=== PATIENT | male | born 1970 ===

== ENCOUNTER 2021-05-07 04:25 | Inpatient (IN) ==
[2021-05-07] MEDS ORDERED: Heparin DRIP 25,000 UNITS BAG 25,000 UNITS/500 ML BAG IV SCH (05:15)
[2021-05-07] MEDS ORDERED: Atropine 0.1 MG/ML 10 ml SYR (1 mg) ONE (05:59)
[2021-05-07] MEDS ORDERED: cefTRIAXone 1 gm/50 mL NS BAG 1 GM/50 ML BAG IVPB SCH (06:00)
[2021-05-07] MEDS ORDERED: Azithromycin 500 mg/250 ml NS 500 MG/250 ML BAG IVPB SCH (06:00)
[2021-05-07] MEDS ORDERED: Heparin 5000 UNITS/ML 1 mL VIAL IV SCH ×2 (06:00)
[2021-05-07] MEDS: methylPREDNISolone SOD 40 mg/ml 1 ml VIAL IV SCH ×3 (06:23→20:43)
[2021-05-07] MEDS: Levofloxacin 750 MG IVPREMIX 750 MG/150 ML BAG IVPB SCH (06:23)
[2021-05-07 06:49] LABS: Activated Partial Thrombo Time 23.1 seconds (26.0-38.0); INR 1.41 (0.86-1.15)
[2021-05-07 06:52] LABS: White Blood Count 12.7 10^3/uL (3.5-10.8)
[2021-05-07 06:53] LABS: Hematocrit 27 % (42-52); Hemoglobin 8.9 g/dL (14.0-18.0); Mean Corpuscular HGB Conc 33 g/dL (31-36); Mean Corpuscular Hemoglobin 31 pg (27-31); Mean Corpuscular Volume 94 fL (80-94); Mean Platelet Volume 7.2 fL (7.4-10.4); Platelet Count 570 10^3/uL (150-450); Red Blood Count 2.84 10^6 /uL (4.18-5.48); Red Cell Distribution Width 14 % (10-15)
[2021-05-07] MEDS ORDERED: Albuterol HFA INHALER 8 gm MDI INH SCH (07:00)
[2021-05-07] MEDS ORDERED: NS 0.9% 1000 ml BAG 1,000 ML IV ONE (07:00)
[2021-05-07] MEDS ORDERED: Mometasone/Formoter 200/5 MDI INH SCH (07:00)
[2021-05-07 07:39] LABS: Albumin 2.8 g/dL (3.2-5.2); Calcium 7.8 mg/dL (8.6-10.3); Potassium 4.1 mmol/L (3.5-5.0); Total Bilirubin 1.3 mg/dL (0.2-1.0)
[2021-05-07 07:41] LABS: Globulin 2.7 g/dL (2-4); Total Protein 5.5 g/dL (6.4-8.9); eGFR CKD-EPI 105.3 (>60)
[2021-05-07 07:42] LABS: Troponin I 0.01 ng/mL (<0.03)
[2021-05-07 08:07] LABS: ABS Basophils 0.1 10^3/ul (0-0.2); ABS Eosinophils 0.2 10^3/ul (0-0.6); ABS Lymphocytes 1.2 10^3/ul (1.0-4.8); ABS Monocytes 0.9 10^3/ul (0-0.8); ABS Neutrophils 10.3 10^3/ul (1.5-7.7); Eosinophil % 1.3 %; Lymphocyte % 9.6 %
[2021-05-07 09:40] LABS: Phosphorus 3.4 mg/dL (2.5-5.0)
[2021-05-07 11:31] LABS: Hematocrit 25 % (42-52); Hemoglobin 8.7 g/dL (14.0-18.0)
[2021-05-07 20:18] LABS: Urine Appearance Clear; Urine Bilirubin Negative (Negative); Urine Blood Negative (Negative); Urine Color Yellow; Urine Glucose Negative (Negative); Urine Ketones Negative (Negative); Urine Nitrite Negative (Negative); Urine Protein Negative (Negative); Urine Urobilinogen Negative (Negative)
[2021-05-07] MEDS: Heparin DRIP 25,000 UNITS BAG 25,000 UNITS/500 ML BAG IV SCH (20:35)
[2021-05-07 21:01] LABS: Ferritin 206.1 ng/mL (24-336)
[2021-05-08] MEDS ORDERED: Furosemide 20 mg/2 ml IV VIAL IV ONE (03:02)
[2021-05-08 04:40] LABS: ABS Lymphocytes 0.9 10^3/ul (1.0-4.8); ABS Monocytes 0.3 10^3/ul (0-0.8); ABS Neutrophils 11.6 10^3/ul (1.5-7.7); Hematocrit 23 % (42-52); Hemoglobin 7.5 g/dL (14.0-18.0); Lymphocyte % 7.3 %; Mean Corpuscular HGB Conc 33 g/dL (31-36); Mean Corpuscular Hemoglobin 31 pg (27-31); Mean Corpuscular Volume 93 fL (80-94); Mean Platelet Volume 6.7 fL (7.4-10.4); Platelet Count 564 10^3/uL (150-450); Red Blood Count 2.44 10^6 /uL (4.18-5.48); Red Cell Distribution Width 14 % (10-15); White Blood Count 12.9 10^3/uL (3.5-10.8)
[2021-05-08 04:57] LABS: Albumin 3.1 g/dL (3.2-5.2); Albumin/Globulin Ratio 1.1 (1-3); Calcium 8.2 mg/dL (8.6-10.3); Globulin 2.9 g/dL (2-4); Magnesium 2.1 mg/dL (1.9-2.7); Phosphorus 4.4 mg/dL (2.5-5.0); Potassium 4.1 mmol/L (3.5-5.0); eGFR CKD-EPI 105.3 (>60)
[2021-05-08] MEDS: Levofloxacin 750 MG IVPREMIX 750 MG/150 ML BAG IVPB SCH (06:24)
[2021-05-08] MEDS: methylPREDNISolone SOD 40 mg/ml 1 ml VIAL IV SCH ×2 (06:25→18:21)
[2021-05-08] MEDS ORDERED: Albuterol HFA INHALER 8 gm MDI INH PRN (10:46)
[2021-05-08] MEDS: Heparin DRIP 25,000 UNITS BAG 25,000 UNITS/500 ML BAG IV SCH (14:19)
[2021-05-08] MEDS: Mometasone/Formoter 200/5 MDI INH SCH (19:22)
[2021-05-09] MEDS: methylPREDNISolone SOD 40 mg/ml 1 ml VIAL IV SCH (05:40)
[2021-05-09] MEDS: Levofloxacin 750 MG IVPREMIX 750 MG/150 ML BAG IVPB SCH (05:40)
[2021-05-09 05:43] LABS: Calcium 8.3 mg/dL (8.6-10.3); Potassium 4.4 mmol/L (3.5-5.0); eGFR CKD-EPI 106.9 (>60)
[2021-05-09 06:11] LABS: ABS Monocytes 0.5 10^3/ul (0-0.8); ABS Neutrophils 12.7 10^3/ul (1.5-7.7); Eosinophil % 0.1 %; Hematocrit 22 % (42-52); Lymphocyte % 6.8 %; Mean Corpuscular HGB Conc 33 g/dL (31-36); Mean Corpuscular Hemoglobin 31 pg (27-31); Mean Corpuscular Volume 95 fL (80-94); Mean Platelet Volume 7.2 fL (7.4-10.4); Platelet Count 585 10^3/uL (150-450); Red Blood Count 2.27 10^6 /uL (4.18-5.48); Red Cell Distribution Width 14 % (10-15); White Blood Count 14.2 10^3/uL (3.5-10.8)
[2021-05-09] MEDS ORDERED: Furosemide 40 mg/4 ml IV VIAL IV ONE (06:52)
[2021-05-09] MEDS: Mometasone/Formoter 200/5 MDI INH SCH ×2 (08:30→20:14)
[2021-05-09 14:39] LABS: % Iron Saturation 14 % (14 - 50); Total Iron Binding Capacity 181 mcg/dL (250 - 400)
[2021-05-09] MEDS: SELENIUM 200 MCG PO SCH (15:48)
[2021-05-09] MEDS: Acetylcysteine 600mgCAP(RENAL) PO SCH (19:25)
[2021-05-10] MEDS: Levofloxacin 750 MG IVPREMIX 750 MG/150 ML BAG IVPB SCH ×2 (06:00→08:34)
[2021-05-10 06:29] LABS: Hematocrit 23 % (42-52); Hemoglobin 7.5 g/dL (14.0-18.0); Mean Corpuscular HGB Conc 33 g/dL (31-36); Mean Corpuscular Hemoglobin 31 pg (27-31); Mean Corpuscular Volume 95 fL (80-94); Mean Platelet Volume 6.9 fL (7.4-10.4); Platelet Count 610 10^3/uL (150-450); Red Blood Count 2.43 10^6 /uL (4.18-5.48); Red Cell Distribution Width 14 % (10-15); White Blood Count 13.4 10^3/uL (3.5-10.8)
[2021-05-10 06:52] LABS: Calcium 8.2 mg/dL (8.6-10.3); Potassium 3.7 mmol/L (3.5-5.0); eGFR CKD-EPI 106.9 (>60)
[2021-05-10 07:25] LABS: ABS Basophils 0.1 10^3/ul (0-0.2); ABS Lymphocytes 2.7 10^3/ul (1.0-4.8); ABS Monocytes 0.9 10^3/ul (0-0.8); ABS Neutrophils 9.7 10^3/ul (1.5-7.7); ABS Nucleated RBC 0.1 10^3/ul; Eosinophil % 0.2 %; Lymphocyte % 20.2 %; Nucleated Red Blood Cells % 0.7
[2021-05-10] MEDS: Mometasone/Formoter 200/5 MDI INH SCH ×2 (07:43→20:18)
[2021-05-10] MEDS: SELENIUM 200 MCG PO SCH (08:35)
[2021-05-10] MEDS: Acetylcysteine 600mgCAP(RENAL) PO SCH ×2 (08:35→21:25)
[2021-05-10] MEDS ORDERED: methylPREDNISolone SOD 40 mg/ml 1 ml VIAL IV SCH (09:00)
[2021-05-10] MEDS: Heparin DRIP 25,000 UNITS BAG 25,000 UNITS/500 ML BAG IV SCH (14:56)
[2021-05-11 04:42] LABS: Hematocrit 24 % (42-52); Hemoglobin 7.9 g/dL (14.0-18.0); Mean Corpuscular HGB Conc 34 g/dL (31-36); Mean Corpuscular Hemoglobin 32 pg (27-31); Mean Corpuscular Volume 94 fL (80-94); Mean Platelet Volume 6.8 fL (7.4-10.4); Platelet Count 622 10^3/uL (150-450); Red Cell Distribution Width 14 % (10-15); White Blood Count 11.3 10^3/uL (3.5-10.8)
[2021-05-11 04:47] LABS: ABS Basophils 0.1 10^3/ul (0-0.2); ABS Eosinophils 0.2 10^3/ul (0-0.6); ABS Lymphocytes 2.2 10^3/ul (1.0-4.8); ABS Monocytes 0.8 10^3/ul (0-0.8); ABS Neutrophils 8.1 10^3/ul (1.5-7.7); ABS Nucleated RBC 0.2 10^3/ul; Eosinophil % 1.6 %; Lymphocyte % 19.4 %; Nucleated Red Blood Cells % 1.6
[2021-05-11] MEDS: Levofloxacin 750 MG IVPREMIX 750 MG/150 ML BAG IVPB SCH (05:25)
[2021-05-11] MEDS: Mometasone/Formoter 200/5 MDI INH SCH ×2 (07:25→19:55)
[2021-05-11] MEDS: Heparin DRIP 25,000 UNITS BAG 25,000 UNITS/500 ML BAG IV SCH (08:35)
[2021-05-11] MEDS: SELENIUM 200 MCG PO SCH (08:37)
[2021-05-11] MEDS: Acetylcysteine 600mgCAP(RENAL) PO SCH (08:37)
[2021-05-12 04:57] LABS: Hematocrit 25 % (42-52); Hemoglobin 8.3 g/dL (14.0-18.0); Mean Corpuscular HGB Conc 34 g/dL (31-36); Mean Corpuscular Hemoglobin 32 pg (27-31); Mean Corpuscular Volume 94 fL (80-94); Mean Platelet Volume 6.8 fL (7.4-10.4); Platelet Count 603 10^3/uL (150-450); Red Blood Count 2.64 10^6 /uL (4.18-5.48); Red Cell Distribution Width 15 % (10-15); White Blood Count 9.9 10^3/uL (3.5-10.8)
[2021-05-12 04:59] LABS: ABS Eosinophils 0.3 10^3/ul (0-0.6); ABS Lymphocytes 1.6 10^3/ul (1.0-4.8); ABS Monocytes 0.7 10^3/ul (0-0.8); ABS Neutrophils 7.3 10^3/ul (1.5-7.7); Eosinophil % 2.9 %; Lymphocyte % 16.2 %; Nucleated Red Blood Cells % 0.4
[2021-05-12] MEDS: Mometasone/Formoter 200/5 MDI INH SCH (07:25)
[2021-05-12 11:47] VITALS: BP 93/59
== END 2021-05-12 15:00 | disposition home or self-care (01) | DRG 956 ==
LOC: SUATTDRO 05:07 → ICU 05:08 → MED 05-11 21:43
PROVIDERS: ADMIT Hospitalist; ATTEND Hospitalist